=== PATIENT | female | born 1935 | race African-American/Black ===

== ENCOUNTER → 2017-04-02 | Outpatient (CLI) | payer MEDICARE, OTHER | END | disposition home or self-care (01) | LOC: PCVCCLINIC 13:55 | PROVIDERS: ATTEND Internal Medicine Cardiovascular Disease | DX: I25.10 Atherosclerotic heart disease of native coronary artery without angina pectoris (principal); I10 Essential (primary) hypertension; I49.5 Sick sinus syndrome; E78.00 Pure hypercholesterolemia, unspecified; I77.89 Other specified disorders of arteries and arterioles; Z95.0 Presence of cardiac pacemaker; Z88.0 Allergy status to penicillin; Z88.8 Allergy status to other drugs, medicaments and biological substances; Z79.899 Other long term (current) drug therapy | CPT/HCPCS: 80061; 93280; G0463 ==

== ENCOUNTER → 2018-09-22 | Outpatient (CLI) | payer MEDICARE, OTHER | END | disposition home or self-care (01) | LOC: PCVCCLINIC 13:18 | PROVIDERS: ATTEND Internal Medicine Cardiovascular Disease | DX: I25.10 Atherosclerotic heart disease of native coronary artery without angina pectoris (principal); E78.00 Pure hypercholesterolemia, unspecified; I48.0 Paroxysmal atrial fibrillation; I49.5 Sick sinus syndrome; I12.0 Hypertensive chronic kidney disease with stage 5 chronic kidney disease or end stage renal disease; N18.5 Chronic kidney disease, stage 5; E78.5 Hyperlipidemia, unspecified; Z95.0 Presence of cardiac pacemaker; Z88.0 Allergy status to penicillin; Z88.8 Allergy status to other drugs, medicaments and biological substances | CPT/HCPCS: 36415; 80061; 93280; G0463; 93005 ==

== ENCOUNTER → 2019-04-13 | Outpatient (CLI) | payer MEDICARE, OTHER ==
[~2019-04-13] MED LIST: REGADENOSON 0.4 MG/5 ML DISP.SYRIN. IV ONE
--- NOTE | 2019-04-13 14:31 | PCVCIMAG ---
APPROVED REPORT Imaging Protocol: Rest Tc-99m/Stress Tc-99m 1 day Study performed: 04/13/2019 09:56:26 Indication: Atrial Fibrillation, CAD Patient Location: Out-Patient Stress Nurse: Marilee Higuera RN, Hoda Oliver RN [place] Tech:EDE WallerMT Ht: 5 ft 5 in Wt: 123 lbs BSA: 1.61 m2 HR: 65 bpm BP: 151/67 mmHg BMI: 20.4 Rhythm: Sinus Rhythm, PVC's, Intermittent pacing Medical History Medical History: HTN, Hyperlipidemia, CVD, Atrial Fibrillation, ICD Medications: Amlodipine, Atenolol, Lisinopril, Crestor, NTG, Pradaxa Allergies: Many- none relevant to this exam Cardiac Risk Factors: Age Previous Cardiac Procedures: 2006 PCI - Cx Pretest Chest Pain Characteristics: No chest pain Exercise History: Sedentary Meds Held (24 hrs): NTG Resting Data Rest SPECT myocardial perfusion imaging was performed in supine position 45 minutes following the intravenous injection of 9.8 mCi of Tc-99m Sestamibi. Time of rest injection: 0940 Date: 04/13/2019 Administration Route: IV Administration Site: Right AC Pharmacologic Stress Pharmacologic stress test was performed by injecting Regadenoson 0.4 mg IV push over 10-15 seconds immediately followed by the intravenous injection of 34.5 mCi of Tc-99m Sestamibi. Time of stress injection: 1100 Date: 04/13/2019 Administration Route: IV Administration Site: Right AC Gated Stress SPECT was performed 45 minutes after stress injection. The images were gated to evaluate regional wall motion and calculate left ventricular ejection fraction. Stress Test Details Stress Test: Pharmacologic stress testing performed using 0.4 mg of regadenoson per 5 mL given IV over 10 seconds. Reason for pharmacologic stress test: physical limitation, pacemaker. HRMax Heart Rate (APMHR): 135 bpm Resting HR: 65 bpmTarget HR (85% APMHR): 114 bpm Max HR Achieved: 75 bpm % of APMHR: 55 Recovery HR: 72 bpm BP Resting BP: 151/67 mmHg Max BP: 159/71 mmHg Recovery BP: 141/67 mmHg ECG Resting ECG: Sinus Rhythm, PVC's, Intermittent pacing Stress ECG: Sinus Rhythm, PVC's, Intermittent pacing Arrhythmia: PVC's Recovery ECG: Sinus Rhythm, PVC's, Intermittent pacing Clinical Reason for Termination: Completed protocol Stress Symptoms: Dyspnea Symptoms resolved with caffeine. Stress ECG Conclusion non deiagnostic paced Study Quality Study: Good Study Data Post stress, the left ventricular ejection was 78%%.. SSS: 0 SRS: 0 SDS: 0 TID = 0.88. Perfusion No evidence of stress induced ischemia or prior myocardial infarction. Wall Motion Normal left ventricular size and function with no regional wall motion abnormalities. Nuclear Conclusion No evidence of stress induced ischemia or prior myocardial infarction. Normal left ventricular size and function with no regional wall motion abnormalities. Post stress, the left ventricular ejection was 78%%. No prior study available for comparison. Interpreted by: Gerardo Omer MD Electronically Approved: 04/13/2019 13:28:57 <Conclusion> non deiagnostic paced
== END | disposition home or self-care (01) ==
LOC: PCVCIMAG 09:28
PROVIDERS: ATTEND Internal Medicine Cardiovascular Disease
DX: I25.10 Atherosclerotic heart disease of native coronary artery without angina pectoris (principal); I48.0 Paroxysmal atrial fibrillation; I12.0 Hypertensive chronic kidney disease with stage 5 chronic kidney disease or end stage renal disease; N18.9 Chronic kidney disease, unspecified; E78.5 Hyperlipidemia, unspecified; E78.00 Pure hypercholesterolemia, unspecified; I49.5 Sick sinus syndrome; D68.59 Other primary thrombophilia; Z95.0 Presence of cardiac pacemaker; Z96.642 Presence of left artificial hip joint; Z82.49 Family history of ischemic heart disease and other diseases of the circulatory system; Z88.1 Allergy status to other antibiotic agents; Z88.0 Allergy status to penicillin
CPT/HCPCS: 36415; 78452; 80061; 93017; 93280; A9500; G0463; J2785